=== PATIENT | female | born 2000 | race Caucasian/White ===

== ENCOUNTER 2025-01-01 16:51 | Emergency (ER) | payer OTHER, SELFPAY ==
[2025-01-01] VITALS (12 sets, daily range): BP systolic 100–119; BP diastolic 56–72; PULSE 63–103; RESP 11–22; TEMP 36.7–36.8; O2SAT 97–100
--- NOTE | ~2025-01-01 | CT_ITS ---
CTA CHEST CT ABDOMEN PELVIS CLINICAL HISTORY: shortness of breath, on BCP, chest pressure . COMPARISON: None TECHNIQUE: Helical CT performed from thoracic inlet to symphysis pubis IV contrast information not listed in PACS Coronal, sagittal reformats. Multiplanar MIPS CT images acquired with automatic exposure control for dose reduction DLP: 600 mGy-cm FINDINGS: CHEST- Thoracic Aorta: No dissection. No aneurysm. Pulmonary arteries: Normal caliber. No PE. Lungs/Pleura: Clear. Heart: Unremarkable. Tracheobronchial tree: Patent. Nodes: No enlarged nodes. Bones: No acute bony abnormality. Soft tissues: Unremarkable. ABDOMEN/PELVIS- Liver: Hepatomegaly, with steatosis. Gallbladder: Unremarkable. Spleen: Mildly enlarged. Pancreas: Unremarkable. Adrenal glands: Unremarkable. Kidneys: Right kidney- No hydronephrosis. No renal stones. Small cyst. Left kidney- No hydronephrosis. No renal stones. Circumaortic renal vein. Distal esophagus/stomach: Unremarkable. Small bowel loops: Normal caliber and wall thickness. Colon: Normal caliber and wall thickness. Normal RLQ appendix. Nodes: No enlarged nodes. Peritoneum: No ascites. No free air. Urinary bladder: Unremarkable. Uterus: Unremarkable. Adnexa: No masses. Bones: No acute bony abnormality. Soft tissues: Unremarkable. Abdominal aorta: Unremarkable. IVC: Unremarkable. Main portal vein, SMV: Patent. IMPRESSION: CHEST- 1. No acute cardiopulmonary findings. ABDOMEN/PELVIS- 1. No acute abdominopelvic findings. Reviewed, dictated and finalized at location R.
--- NOTE | ~2025-01-01 | CT_ITS ---
EXAMINATION: CT brain wo con COMPARISON: None HISTORY: AMS TECHNIQUE: Axial images were obtained through the brain without IV contrast. CT scan performed using dose optimization techniques including the following automated exposure control; adjustment of mA and/or kV; use of iterative reconstruction technique. Automatic exposure control was used to reduce radiation dose. Permanent radiation dose record is archived to PACS. FINDINGS: No acute infarct or parenchymal hemorrhage. No abnormal mass or mass effect. No midline shift. No extra-axial fluid collections. No hydrocephalus. . Mastoid air cells unremarkable. Sinuses and orbits unremarkable. No acute fracture. No significant facial or scalp soft tissue swelling evident. No radiopaque foreign body is seen. Impression: 1.No acute intracranial abnormality. Reviewed, dictated and finalized at location P. Impression: 1.No acute intracranial abnormality.
[2025-01-01 17:25] LABS: Hematocrit 39.7 % (37.0-47.0); Hemoglobin 13.9 g/dL (12.0-15.0); Immature Granulocyte Percent A 0.3 % (0-0.5); Lymphocytes Absolute Auto 3.96 K/mm3 (0.9-3.2); Mean Corpuscular HGB Conc 35.0 g/dl (32-36); Mean Corpuscular Hemoglobin 29.8 pg (26-34); Mean Corpuscular Volume 85.2 fl (80-100); Nucleated Red Blood Cells Absolute Auto 0.000 K/mm3 (0.0-0.012); Nucleated Red Blood Cells Perc 0.0 % (0.0-0.2); Platelet Count Result 233 k/mm3 (150-375); Red Blood Count 4.66 M/mm3 (4.2-5.4); White Blood Count 7.8 K/mm3 (4.5-10.0)
--- NOTE | 2025-01-01 17:25 | ECG_ITS ---
Test Date: 2025-01-01 17:26:49 Measurements Intervals [place] Rate: 75 P: 49 KS: 140 QRS: 15 QRSD: 89 T: 47 QT: 395 QTc: 442 Interpretive Statements SINUS RHYTHM NONSPECIFIC T-WAVE ABNORMALITY- ANTERIOR LEADS BORDERLINE ECG No previous ECG available for comparison Electronically Signed On 01-01-2025 18:34:49 CDT by Glenn Wells D.O.
[2025-01-01 17:36] LABS: Alanine Aminotransferase 18 U/L (6-35); Albumin Level 4.8 g/dL (3.5-5.1); Alkaline Phosphatase 66 U/L (38-126); Anion Gap 11 mmol/L (4-12); Aspartate Amino Transferase 28 U/L (14-36); Bilirubin,Total 0.4 mg/dL (0.2-1.3); Blood Urea Nitrogen 11 mg/dL (7-17); Calcium 9.7 mg/dL (8.4-10.2); Carbon Dioxide 24 mmol/L (22-30); Chloride 105 mmol/L (98-107); Estimated CRCL calculation 87 ml/min; Estimated Glomerular Filt Rate > 60; Glucose 90 mg/dL (65-110); Potassium 3.7 mmol/L (3.4-5.0); Sodium 140 mmol/L (137-145); Total Protein 8.5 g/dL (6.3-8.2)
[2025-01-01 17:37] LABS: Acetaminophen < 10 ug/mL (10-30); INR 1.0; Partial Thromboplastin Time 27.8 Seconds (22.3-36.8); Prothrombin Time 13.5 Seconds (11.1-14.7); Salicylate < 1.0 mg/dL (2-20)
[2025-01-01 18:25] LABS: Thyroid Stimulating Hormone Reflex 3.660 uIU/mL (0.465-4.68)
--- NOTE | 2025-01-01 18:26 | ED.AMS ---
HPI - Altered Mental Status General Chief Complaint: Altered Mental Status Stated Complaint: passing out, in and out of conciousness for hour Time Seen by Provider: 01/01/25 17:08 History of Present Illness HPI narrative: Patient is a 24-year-old female who presents to the ER after experiencing an episode of brain fog, tongue heaviness, muscle weakness, and semi-consciousness. She reports her symptoms started this afternoon and she has never experienced this before. Patient endorses a history of hypothyroidism, PCOS, and endometriosis. She reports she currently takes levothyroxine and a medication to stop her periods due to endometriosis. Patient also endorses some chest pressure and shortness of breath. She denies any recent fevers, acute back pain, or hematuria. Related Data Allergies Allergy/AdvReac Type Severity Reaction Status Date / Time pseudoephedrine (From Allergy Mild Vomiting Verified 01/01/25 17:27 Sudafed) Review of Systems Review of Systems: All systems reviewed & are unremarkable except as noted in HPI and below Exam Narrative: GENERAL: Slightly ill appearing, well-nourished, non-toxic, in no acute distress. HEAD: Normocephalic, atraumatic. NECK: Supple. No adenopathy, no masses. RESPIRATORY: Airway patent, respirations nonlabored. Clear to auscultation bilaterally, no rales, rhonchi, wheezing. CARDIOVASCULAR: Regular rate and rhythm without murmurs, rubs, or gallops. Peripheral pulses 2+ and equal bilaterally. ABDOMINAL: Soft, nontender, nondistended, no hepatosplenomegaly. Normoactive BS. MUSCULOSKELETAL: Moves all extremities. Strength/ROM intact without gross deformities. SKIN: Warm, dry, mildly pallor. No rashes. NEURO: A&O X3. Speech clear. Cranial nerves II-XII intact. No ataxic movements. PSYCHIATRIC: Appropriate mood and affect. Normal interaction. Course Vital Signs Vital signs: Vital Signs Temperature 36.7 C 01/01/25 17: Pulse Rate 78 01/01/25 17: Respiratory Rate 12 01/01/25 17:28 Blood Pressure 114/72 01/01/25 17:28 Pulse Oximetry 100 01/01/25 17:28 Oxygen Delivery Room Air 01/01/25 17:28 Temperature 36.7 C 01/01/25 17:28 Pulse Rate 103 H 01/01/25 18:41 Respiratory Rate 22 H 01/01/25 18:41 Blood Pressure 107/62 01/01/25 18:41 Pulse Oximetry 98 01/01/25 18:41 Oxygen Delivery Room Air 01/01/25 17:34 MDM - Altered Mental Status MDM Narrative Medical decision making narrative: Patient is a 24-year-old female who presents to the ER after experiencing an episode of brain fog, tongue heaviness, muscle weakness, and semi-consciousness. She reports her symptoms started this afternoon and she has never experienced this before. Patient endorses a history of hypothyroidism, PCOS, and endometriosis. She reports she currently takes levothyroxine and a medication to stop her periods due to endometriosis. Patient also endorses some chest pressure and shortness of breath. She denies any recent fevers, acute back pain, or hematuria. Labs Ordered: CBC, CMP, PTT, INR, TSH, ethanol, Tylenol level, salicylate level, UA, drug screen Imaging Ordered: CTA chest PE abdomen pelvis Medications Ordered: 1 L normal saline IV bolus Results: Patient's blood work results were all within normal limits. Her CT scan indicates no acute abnormalities. Diagnosis: dizziness, altered mental status Consults: OBGYN (outpatient, already established), Endocrinology (outpatient, already established) Patient Education/Shared MDM: Results of lab work and imaging shared with patient and her family. She was ambulated around the ER and endorsed slight dizziness but denies any altered mental status. Her orthostatic vital signs were negative for any acute abnormalities. Patient strongly advised to maintain hydration status upon discharge and follow-up with her PCP, dance entertainer, and OBGYN as soon as possible. She will not be discharged home with any new prescriptions. Strict return precautions provided. Patient verbalized understanding and is in agreement with plan. Vital signs stable at time of discharge. All questions answered. Differential Diagnosis Differential diagnosis: Likely altered mental status, hypoglycemia, hyponatremia, subarachnoid hemorrhage and sepsis Lab Data Attestation: I reviewed the patient's lab results. 01/01/25 17:20 01/01/25 17:20 Labs: Lab Results 01/01/25 01/01/25 01/01/25 Range/Units 16:57 17:20 18:13 WBC 7.8 (4.5-10.0) K/mm3 RBC 4.66 (4.2-5.4) M/mm3 Hgb 13.9 (12.0-15.0) g/dL Hct 39.7 (37.0-47.0) % MCV 85.2 (80-100) fl MCH 29.8 (26-34) pg MCHC 35.0 (32-36) g/dl RDW 12.2 (11.5-14.5) % Plt Count 233 (150-375) k/mm3 MPV 9.6 (7.4-10.4) fl Immature Gran % (Auto) 0.3 (0-0.5) % Neut % (Auto) 41.8 L (45.5-73.1) % Lymph % (Auto) 51.0 H (18.3-44.2) % Armstrong % (Auto) 5.3 (2.6-8.5) % Eos % (Auto) 1.3 (0-4.4) % Baso % (Auto) 0.3 (0.2-1.2) % Lymph # (Auto) 3.96 H (0.9-3.2) K/mm3 Armstrong # (Auto) 0.4 (0.1-0.6) K/mm3 Eos # (Auto) 0.1 (0-0.3) K/mm3 Baso # (Auto) 0.0 (0.0-0.1) K/mm3 Abs Immat Gran (auto) 0.02 (0.00-0.031) K/mm3 Absolute Neuts (auto) 3.3 (1.3-6.7) K/mm3 Absolute Nucleated RBC 0.000 (0.0-0.012) K/mm3 Nucleated RBC % 0.0 (0.0-0.2) % PT 13.5 (11.1-14.7) Seconds INR 1.0 APTT 27.8 (22.3-36.8) Seconds Sodium 140 (137-145) mmol/L Potassium 3.7 (3.4-5.0) mmol/L Chloride 105 (98-107) mmol/L Carbon Dioxide 24 (22-30) mmol/L Anion Gap 11 (4-12) mmol/L BUN 11 (7-17) mg/dL Creatinine 0.82 (0.7-1.0) mg/dL Estim Creat Clear Calc 87 ml/min Estimated GFR > 60 (59 - ) Glucose 90 (65-110) mg/dL POC Capillary Glucose 73 (65-105) mg/dl Calcium 9.7 (8.4-10.2) mg/dL Total Bilirubin 0.4 (0.2-1.3) mg/dL AST 28 (14-36) U/L ALT 18 (6-35) U/L Alkaline Phosphatase 66 (38-126) U/L Total Protein 8.5 H (6.3-8.2) g/dL Albumin 4.8 (3.5-5.1) g/dL TSH (Reflex) 3.660 (0.465-4.68) uIU/mL Urine Color Yellow (Yellow) Urine Appearance Clear (Clear) Urine pH 7.5 (5.0-9.0) Ur Specific [place] 1.004 (1.001-1.035) Urine Protein Negative (Negative) mg/dL Urine Glucose (UA) Negative (Negative) mg/dL Urine Ketones Negative (Negative) mg/dL Ur Blood (Man) Negative (Negative) Urine Nitrate Negative (Negative) Urine Bilirubin Negative (Negative) Urine Urobilinogen 0.2 (<2.0) mg/dL Leukocyte Esterase Rfl Negative (Negative) JANUARY/UL POC Urine HCG, Qual (Negative) Salicylates < 1.0 L (2-20) mg/dL Urine Opiates Screen Negative (Negative) Urine Methadone Screen Negative (Negative) Acetaminophen < 10 L (10-30) ug/mL Ur Barbiturates Screen Negative (Negative) Ur Phencyclidine Scrn Negative (Negative) Ur Amphetamine Screen Negative (Negative) U Benzodiazepines Scrn Negative (Negative) Urine Cocaine Screen Negative (Negative) U Cannabinoids Screen Negative (Negative) Ethyl Alcohol < 10 (<10) mg/dL Influenza A (RT-PCR) (Negative) Influenza B (RT-PCR) (Negative) RSV (RT-PCR) (Negative) SARS-CoV-2 RNA (RT-PCR) (Negative) 01/01/25 01/01/25 Range/Units 18:30 18:37 WBC (4.5-10.0) K/mm3 RBC (4.2-5.4) M/mm3 Hgb (12.0-15.0) g/dL Hct (37.0-47.0) % MCV (80-100) fl MCH (26-34) pg MCHC (32-36) g/dl RDW (11.5-14.5) % Plt Count (150-375) k/mm3 MPV (7.4-10.4) fl Immature Gran % (Auto) (0-0.5) % Neut % (Auto) (45.5-73.1) % Lymph % (Auto) (18.3-44.2) % Armstrong % (Auto) (2.6-8.5) % Eos % (Auto) (0-4.4) % Baso % (Auto) (0.2-1.2) % Lymph # (Auto) (0.9-3.2) K/mm3 [place] # (Auto) (0.1-0.6) K/mm3 Eos # (Auto) (0-0.3) K/mm3 Baso # (Auto) (0.0-0.1) K/mm3 Abs Immat Gran (auto) (0.00-0.031) K/mm3 Absolute Neuts (auto) (1.3-6.7) K/mm3 Absolute Nucleated RBC (0.0-0.012) K/mm3 Nucleated RBC % (0.0-0.2) % PT (11.1-14.7) Seconds INR APTT (22.3-36.8) Seconds Sodium (137-145) mmol/L Potassium (3.4-5.0) mmol/L Chloride (98-107) mmol/L Carbon Dioxide (22-30) mmol/L Anion Gap (4-12) mmol/L BUN (7-17) mg/dL Creatinine (0.7-1.0) mg/dL Estim Creat Clear Calc ml/min Estimated GFR (59 - ) Glucose (65-110) mg/dL POC Capillary Glucose (65-105) mg/dl Calcium (8.4-10.2) mg/dL Total Bilirubin (0.2-1.3) mg/dL AST (14-36) U/L ALT (6-35) U/L Alkaline Phosphatase (38-126) U/L Total Protein (6.3-8.2) g/dL Albumin (3.5-5.1) g/dL TSH (Reflex) (0.465-4.68) uIU/mL Urine Color (Yellow) Urine Appearance (Clear) Urine pH (5.0-9.0) Ur Specific [place] (1.001-1.035) Urine Protein (Negative) mg/dL Urine Glucose (UA) (Negative) mg/dL Urine Ketones (Negative) mg/dL Ur Blood (Man) (Negative) Urine Nitrate (Negative) Urine Bilirubin (Negative) Urine Urobilinogen (<2.0) mg/dL Leukocyte Esterase Rfl (Negative) JANUARY/UL POC Urine HCG, Qual Negative (Negative) Salicylates (2-20) mg/dL Urine Opiates Screen (Negative) Urine Methadone Screen (Negative) Acetaminophen (10-30) ug/mL Ur Barbiturates Screen (Negative) Ur Phencyclidine Scrn (Negative) Ur Amphetamine Screen (Negative) U Benzodiazepines Scrn (Negative) Urine Cocaine Screen (Negative) U Cannabinoids Screen (Negative) Ethyl Alcohol (<10) mg/dL Influenza A (RT-PCR) Negative (Negative) Influenza B (RT-PCR) Negative (Negative) RSV (RT-PCR) Negative (Negative) SARS-CoV-2 RNA (RT-PCR) Negative (Negative) Imaging Data Attestation: I personally reviewed and interpreted this imaging study as follows: Radiologist's impression: Impressions Head CT 01/01/25 17:28 Impression: 1.No acute intracranial abnormality. Chest/Abdomen/Pelvis CTA 01/01/25 19:43 IMPRESSION: CHEST- 1. No acute cardiopulmonary findings. ABDOMEN/PELVIS- 1. No acute abdominopelvic findings. Discharge Plan Discharge Clinical Impression: Altered mental status, Dizziness of unknown cause Patient Disposition: Home Condition: Stable Instructions: Antibiotic Form Additional Instructions: Please return to the ER with any worsening symptoms. Follow-up with primary care provider, Sound Assistant, an OBGYN as soon as possible. Take all medications as prescribed, including regularly scheduled medications. Please remember to drink lots of water. Patient Language: Y[place] Follow-up/Referrals: PHYSICIAN NOT ON STAFF,NONSTAFF [Primary Care Provider] Time of Disposition: 20:47
[2025-01-01 18:28] LABS: Add Urine Microscopic? NO; Appearance Urine Clear (Clear); Glucose Urine UA Negative (Negative); Leukocyte Esterase Ur Negative LEU/UL (Negative); Nitrate Urine Negative (Negative); Specific Grav Ur 1.004 (1.001-1.035)
[2025-01-01 18:39] LABS: BEDSIDEPREGUCG Negative (Negative)
[2025-01-01 18:43] LABS: Cannabinoid Screen Urine Negative (Negative)
[2025-01-01] MEDS: SODIUM CHLORIDE 0.9% IV 1,000 ML 999 ML IV CONT (18:49)
[2025-01-01 19:21] LABS: Influenza A QL RT-PCR Negative (Negative); Influenza B QL RT-PCR Negative (Negative); RSV RNA, RT-PCR Negative (Negative); SARS-CoV-2 RNA PCR Negative (Negative)
--- OUTSIDE RECORDS SUMMARY | 2025-01-01 19:21 | XMS_ITS | Data Portability ---
Author Organization [place] - [facility], EFF_Historical Results Address [address] [place] [address] Care Team Providers Care Objective C Developer Name Role Phone JASIEL ROMAN Primary Care Provider [phone] Assessment Encounter Date Assessment Date Assessment LastModified by Organization Details LastModified Time 07/18/2024 07/18/2024 Extensive history reviewed with pt. Reviewed various options to help suppress cycles. OCPs, IUD, Orilissa, Myfembree, and Lupron. Failed numerous OCPs recently. Not intersted in IUD at this time. Normal SIS. previously had thin endometrium and bleeding improved with the addition of estradiol to pill. Pt agreeable to try Myfembree. Will have her stop her OCPs and start Myfembree and use back up the 1st week. Myfembree not technically approved as contraception so would use condoms for back up. F/u in 6-8wk on medication. [email or web address] Not available 07/18/2024 13:06:00 08/22/2024 08/22/2024 -Pap was done. -Discussed breast self-awareness. Can do Baseline mammogram 35-40 and if over 40 annually. -Contraceptive options discussed. Patient plans condom use -Encouraged condoms for the prevention of STDs -Reviewed that colon cancer screening is recommended to begin at age 45. -Sunscreen and seat belt use encouraged. -Age appropriate vaccines discussed with patient. -Follow up as needed, or for yearly gynecologic exam [email or web address] Not available 08/22/2024 12:19:54 09/20/2024 09/20/2024 Extensive history reviewed with pt. Reviewed various options to help suppress cycles. OCPs, IUD, Orilissa, Myfembree, and Lupron. Failed numerous OCPs recently. Not interested in IUD at this time. Normal SIS. previously had thin endometrium and bleeding improved with the addition of estradiol to pill. Pt is doing well with the Myfembree. Myfembree not technically approved as contraception so would use condoms for back up. F/u in August next year for AWV. [email or web address] Not available 09/20/2024 11:22:58 Plan of Treatment Reminders Order Date Submit Date Provider Last Modified By Organization Details Last Modified Time Details Appointments Annual Exam 2025 11:30A M CARIDAD BUSH PA-C Not available Not available Not available Lab pap, LB + reflex HPV mRNA E6/E7 [address] [facility], [id number] [place] [address], [address], 08/26/2024 10:22:57 Referral None recorded. Procedures None recorded. Surgeries None recorded. Imaging None recorded. Medication Orders Myfembree 40 mg-1 mg-0.5 mg tablet 2024 025 [facility], [address] [place] [address], [address], 12/28/2024 13:00:06 Myfembree 40 mg-1 mg-0.5 mg tablet 2024 025 [facility], [address] [place] [address], [address], 09/14/2024 10:59:34 Nortrel 1/35 (28) 1 mg-35 mcg tablet 2024 025 [facility], [address] [place] [address], [address], 07/04/2024 14:55:21 Patient TargetsNo targets recorded. Patient Instructions Encounter Date Encounter Id Patient Instructions Last Modified By Organization Details Last Modified Time 03/22/2024 [id number] discussed that t he SIS findings reveal a thin endometrial stripe and the fact that her bleeding improved with the estradiol suggests that she should try higher dose OC. Had tried not to do that due to the endometriosis but overall - she seems to do better with the estrogen. Nortrel sent to pharmacy and she will begin those. Keep next appointment [email or web address] Not available 03/23/2024 17:58:58 04/06/2024 [id number] She is going to continue the Metformin. Discussed referral to GI for the continued abd discomfort. She is agreeable. [email or web address] Not available 04/06/2024 15:46:03 08/22/2024 [id number] Happy that she i s doing will on Myfembree. Hopefully her pain will continue to improve. [email or web address] Not available 08/22/2024 12:20:28 Reason for Referral None Reported. Results Created Date Observation Date Name Description Value Unit Range Abnormal Flag Note LastModifiedBy Organization Detail LastModifiedTime 08/23/19 25 08/26/2024 THINP REP TIS PAP W/REF L HPV MRNA E6/E7 clinical information: normal None given Not Available [address], [address], 08/26/2024 10:22:57 08/23/19 25 08/26/2024 THINP REP TIS PAP W/REF L HPV MRNA E6/E7 LMP: normal NONE GIVEN Not Available [address], [address], 08/26/2024 10:22:57 08/23/19 25 08/26/2024 THINP REP TIS PAP W/REF L HPV MRNA E6/E7 prev. Pap: normal NONE GIVEN Not Available [address], [address], 08/26/2024 10:22:57 08/23/19 25 08/26/2024 THINP REP TIS PAP W/REF L HPV MRNA E6/E7 prev. BX: normal NONE GIVEN Not Available [address], [address], 08/26/2024 10:22:57 08/23/19 25 08/26/2024 THINP REP TIS PAP W/REF L HPV MRNA E6/E7 source: normal Cervi x, Endoc ervix Not Available [address] [place], [address], 08/26/2024 10:22:57 08/23/19 25 08/26/2024 THINP REP TIS PAP W/REF L HPV MRNA E6/E7 statement of adequacy: normal Satis facto ry for evalu ation . Endoc ervic al/tr ansfo rmati on zone compo nent prese nt. Age and/o r menst rual statu s not provi ded Not Available [address] [place], [address], 08/26/2024 10:22:57 08/23/19 25 08/26/2024 THINP REP TIS PAP W/REF L HPV MRNA E6/E7 interpretati on/result: normal Cytol ogy Resul ts: Negat timothy for intra epith elial lesio n or malrosalina motley . Not Available [address] [place], [address], 08/26/2024 10:22:57 08/23/19 25 08/26/2024 THINP REP TIS PAP W/REF L HPV MRNA E6/E7 comment: normal This Pap test has been evalu ated with compu ter jeet [employer] o[employer] . Not Available [address] [place], [address], 08/26/2024 10:22:57 08/23/19 25 08/26/2024 THINP REP TIS PAP W/REF L HPV MRNA E6/E7 cytotechnolo gist: normal LM, CT( CP) CT scree betty locat ion: [address] [place] [address] Not Available [address] [place], [address], 08/26/2024 10:22:57 08/23/19 25 08/26/2024 THINP REP TIS PAP W/REF L HPV MRNA E6/E7 comment EXPLA NATOR Y NOTE: The Pap is a scree betty test for cervi shannon cance r. It is not a diagn ostic test and is subje ct to false negat timothy and false posit timothy resul ts. It is most relia ble when a satis facto ry sampl e, regul ion obtai letha, is submi tted with relev ant clini shannon findi ngs and histo ry, and when the Pap resul t is evalu ated along with histo mandy and curre nt clini shannon infor matio n. Not Available [facility] [address], [place], [address], 08/26/2024 10:22:57 03/22/1903/22/2024 US, salin e infus ed uteru s No observ ation record ed. [email or web address] [address], [place], [address], 03/23/2024 18:02:51 05/01/19 25 08/17/2022 imagi ng/di agnos tic resul t No observ ation record ed. Not Available 05/01/2024 06:57:25 05/01/19 25 11/17/2022 imagi ng/di agnos tic resul t No observ ation record ed. Not Available 05/01/2024 06:57:26 Result Notes None recorded. Problems Name Problem SNOMED Code Status Onset Date Resolution Date Notes Provider Name and Address Organization Details Recorded Time Dysmenorrh ea 315436598 Active 2023 Shelia yarbrough [facility] 4 10:30:24 Endometrio sis of pelvis 00564562 Active 2023 CARIDAD BUSH PA-C [address] [place], [address] , [place] [facility] 4 16:16:06 Abnormal uterine bleeding 3517086271584 0 Active 2023 Shell yarbrough [facility] 4 13:20:01 Acquired hypothyroi dism 200548512 Active 2024 Shelia Micheal [facility] 5 15:25:56 Problem Notes None recorded. Procedures Surgical History Date Name Laterality Status Provider Name and Address Organization Details Recorded Time 08/23/19 25 Date of Last Pap Smear completed Hannah Vann [facility] 08/28/2024 11:05:15 03/22/19 25 EFF Saline Infusion Sonogram (SIS) completed LUCINDA HINOJOSA MD [address] [place] [address], [phone] 03/23/2024 17:56:55 10/17/19 24 Laparoscopy excise lesions completed MARIANN MORENO [facility] 10/21/2023 09:02:44 10/17/19 24 Laparoscopy completed Marifer Maher [facility] 07/18/2024 11:06:27 03/11/19 22 Breast reduction completed Rosemary Cameron [facility] 07/21/2023 16:42:38 Imaging Results None recorded. Procedure Notes None recorded. Medical Equipment None Reported. Allergies Allergen ID Allergen Name Allergen Category Reaction Reaction Severity Criticality Documentation Date Start Date Code Code System Note Provider Name and Address Organization Details Recorded Time Miralax medicatio n Not available Not available Not available 12/29/2023 03050 5 RxNorm Tayleran Vides [facility] 4 15:55:40 7196 Sudafed medicatio n vomiting Not available Not available 07/21/202312576 2 RxNorm Jocelynne Will [facility] 4 16:36:54 Medications Name Sig Start Date Stop Date Status Note LastModified by Organization Details LastModified Time Prescript ion - Clarifica tion 09/20 completed Imported - PA request Not Available Not Available Not Available amoxicill in 500 mg capsule 07/26 completed Not Available Not Available Not Available prednison e 10 mg tablet TAKE THREE TABLETS BY MOUTH FOR 3 DAYS, THEN TAKE TWO TABLETS BY MOUTH FOR 3 DAYS, THEN TAKE ONE TABLET BY MOUTH FOR 4 DAYS 07/12 completed Not Available Not Available Not Available azithromy jeramie 250 mg tablet TAKE 2 TABLETS BY MOUTH ON DAY 1, THEN TAKE 1 TABLET DAILY ON DAYS 2-5 03/19 completed Not Available Not Available Not Available hydrocodo ne 5 mg-acetam inophen 325 mg tablet Take 1 tablet by mouth every 4 (four) hours as needed for Pain. Indicati ons Acute Pain < 7 Day Supply 11/08 completed Not Available Not Available Not Available doxycycli ne monohydra te 100 mg tablet 01/23 completed Not Available Not Available Not Available triamcino lone acetonide 0.1 % topical cream Apply topicall y TWO times daily. 07/12 completed Not Available Not Available Not Available levothyro xine 25 mcg tablet Take 1 tablet (25 mcg total) by mouth every morning. active Not Available Not Available No t Available Nortrel 1/35 (28) 1 mg-35 mcg tablet Take 1 tablet every day by oral route. SKIP PLACEBOS . 08/21 completed Not Available Not Available Not Available estradiol 0.5 mg tablet TAKE ONE TABLET BY MOUTH EVERY DAY active Not Available Not Available No t Available ibuprofen 600 mg tablet Take 1 tablet (600 mg total) by mouth every 6 (six) hours as needed for Pain. 04/06 completed Not Available Not Available Not Available albuterol sulfate HFA 90 mcg/actua tion aerosol inhaler INHALE 2 PUFFS BY MOUTH EVERY 4 TO 6 HOURS NEEDED 07/26 completed Not Available Not Available Not Available metformin ER 500 mg tablet,ex tended release 24 hr TAKE ONE TABLET BY MOUTH ONCE DAILY WITH EVENING MEAL. 2024 active Not Available Not Available Not Avai lable dicyclomi ne 10 mg capsule TAKE ONE CAPSULE BY MOUTH FOUR TIMES DAILY FOR 21 DAYS NEEDED FOR CRAMPING active Not Available Not Available No t Available Nortrel 1/35 (28) take 1 tablet daily 03/23 completed Not Available Not Available Not Available Symbicort 160 mcg-4.5 mcg/actua tion HFA aerosol inhaler INHALE 2 PUFFS BY MOUTH TWICE DAILY. RINSE MOUTH WITH WATER AFTER USE 07/26 completed Not Available Not Available Not Available Lo Loestrin Fe 1 mg-10 mcg (24)/10 mcg (2) tablet 04/06 completed Not Available Not Available Not Available Piper (28) 3 mg-0.02 mg tablet TAKE ONE TABLET BY MOUTH DAILY 03/23 completed Not Available Not Available Not Available Orilissa 150 mg tablet TAKE ONE TABLET BY MOUTH EVERY DAY 12/26 completed patient feels like it may be causing night terrors. Not Available Not Available Not Available Myfembree 40 mg-1 mg-0.5 mg tablet Take 1 tablet every day by oral route. 2024 active Not Available Not Available Not Avai lable Vitals Date Recorded Body height Body mass index (BMI) Body weight Systolic And Diastolic Provider Name and Address Organization Details Last Updated DateTime 03/22/2024 156.21 cm 31.6 kg/m2 03485.7 g 122/60 mm[Hg] Shelia Ashby [facility] 03/22/2024 16:00:27 Date Recorded Body height Body mass index (BMI) Body weight Systolic And Diastolic Provider Name and Address Organization Details Last Updated DateTime 04/06/2024 156.21 cm 32.2 kg/m2 85084.48 g 118/70 mm[Hg] Shelia Burton [facility] 04/06/2024 15:21:14 Date Recorded Body height Body mass index (BMI) Body weight Systolic And Diastolic Provider Name and Address Organization Details Last Updated DateTime 07/18/2024 156.21 cm 32.3 kg/m2 86934.07 g 106/76 mm[Hg] [facility] 07/18/2024 11:11:45 Date Recorded Body height Body mass index (BMI) Body weight Systolic And Diastolic Provider Name and Address Organization Details Last Updated DateTime 08/22/2024 156.21 cm 31.8 kg/m2 69797.3 g 120/78 mm[Hg] [facility] 08/22/2024 11:56:02 Date Recorded Body height Body mass index (BMI) Body weight Systolic And Diastolic Provider Name and Address Organization Details Last Updated DateTime 09/20/2024 156.21 cm 31.2 kg/m2 47228.52 g 110/68 mm[Hg] Melody Lora [facility] 09/20/2024 11:14:23 Social History Question Answer Notes LastModified by Organizat ion Details LastModified Time Tobacco Smoking Status Never Smoker Rosemary yarbrough [facility] 07/21/2023 16:41:58 What Is Your Level Of Caffeine Consumption? None [email or web address] Information not available 07/18/2024 What Type Of Diet Are You Following? REGULAR Information not available 07/28/2023 Have There Been Any Changes To Your Family Or Social Situation? No Information not available 07/28/2023 What Is The Highest Level Of School You Have Completed Or The Highest Degree You Have Received? High School Graduate Information not available 07/21/2023 How Do You Identify Yourself? Heterosexual Information not available 07/21/2023 What Is Your Ethnicity? Information not available 07/28/2023 What Was The Date Of Your Most Recent Tobacco Screening? 08/22/2024 [email or web address] Information not available 08/22/2024 What Is Your Relationship Status? Single Information not available 07/21/2023 Are There Any Smokers In Your House? No Information not available 07/28/2023 How Much Tobacco Do You Smoke? No Information not available 07/28/2023 Sex: Female Functional Status Question Answer Note LastModified by Organizat ion Details LastModified Time Do you use any illicit or recreational drugs? No Information not available 07/21/2023 Do you or have you ever used any other forms of tobacco or nicotine? No Information not available 07/28/2023 What is your level of alcohol consumption? None [email or web address] Information not available 07/18/2024 Are you currently employed? No Information not available 07/21/2023 What is your exercise level? Occasional Information not available 07/21/2023 Mental Status None recorded. Family History Relationship Description Onset Age of this Age Resolved Age Notes LastModified by Organization Details LastModified Time Paternal Grandfather Malignant neoplastic disease pt. added direct ly (07/26) API-13 Not available 07/27/2023 12:47:15 Unspecified Relation Malignant neoplasm of rectum [email or web address] Not available 2024 11:07:42 Unspecified Relation Malignant neoplasm of rectum [email or web address] Not available 2024 11:07:42 Medical History Condition Response Allergies (Food, seasonal, environmental ) Y Other N Thyroid Disease Y Cancer Endometrial N Blood Transfusion N Cancer Breast N Lung Disease N Depression N GI Problems N Hematologic (Blood) Disorder N Eating Disorder N Gestational Diabetes N Anemia N Psychiatric Disorder N Thrombophilia N Cancer Colon N Diabetes N Anxiety Disorder N Cancer Other N Arthritis N Cancer Uterine N Acid Reflux (GERD) N Stroke N Asthma N Polycystic Ovary Syndrome (PCOS) Y Endometriosis Y High Cholesterol N Neurologic Disorder N Defects N Liver Disease N Heart Disease N Cancer Ovarian N Fibromyalgia N Deep Vein Thrombosis (DVT) or Pulmonary Embolism (PE) N Hypertension N Osteoporosis N Kidney Disease N Autoimmune Disease N Gynecological History Statement/Question Response Flow Moderate Date of Last Mammogram Date of LMP 07/25/2024 Post Menopausal Bleeding N STIs/STDs N HPV Vaccine N Duration of Flow (days) 4 Age at Menarche 13 Current Control Method BCPs Date of Last DEXA Date of Last Colonoscopy Frequency of Cycle (Q days) 28 Sexually Active? N Menses Monthly N Date of Last Pap Smear 08/22/2024 Hormone Replacement Therapy N Obstetrics History GPAL:G 0 P 0 0 0 0 Past Encounters Encounter ID Performer Location Encounter Start Date Encounter Closed Date Diagnosis/Indication Diagnosis SNOMED-CT Code Diagnosis ICD10 Code Diagnosis IMO Codes Diagnosis Note [id number] LUCINDA HINOJOSA MD [facility] [address] [place] [address] 07/28/2023 10:22:13 07/28/2023 11:37:41 Endometriosis (clinical) 582686745 N80.9 [facility] ion care management 655197160 Z30.9 [id number] SHARMIN MORSE MD [facility] [address] [place] [address] 10/11/2023 16:06:08 10/11/2023 16:49:27 Dysmenorrhea 779993927 N94.6 Endometrio sis (clinical) 554749142 N80.9 Chronic pe lvic pain of female 966536809 R10.2 Pre-surger y evaluation 547401296 Z01.818 [id number] LUCINDA HINOJOSA MD [facility] [address] [place] [address] 10/26/2023 15:12:28 10/26/2023 16:16:22 Surgical incision wound of skin 1887377906 00 R23.8 Normal healing incision.K eep umbilicus dry to prevent drainage.C an use hair worker to dry after shower.Antonio p area clean and dry and use soap and water in the shower.Ret urn for f/u with [facility] next week. Endometrio sis of pelvis 49532971 N80.9 confirmed with l-scope on 10/18/2023 [id number] LUCINDA HINOJOSA MD [facility] [address] [place] [address] 11/11/2023 16:46:15 11/11/2023 18:02:21 Endometriosis of pelvis 39192377 N80.9 [facility] ion care management 788011949 Z30.9 [id number] SHARMIN MORSE MD [facility] [address] [place] [address] 12/29/2023 15:50:34 12/29/2023 16:55:35 Venereal disease screening 452158067 Z11.3 Endometritis 62152635 N7 1.9 Suspect she has inflammati on in the lining. Will do doxy.Okay for exercise.L et me know if problems persist. Menstrual spotting 57194 05 N92.5 Could [id number] CARIDAD BUSH PA-C [facility] [address] [place] [address] 01/26/2024 15:44:56 01/26/2024 18:07:53 Abnormal uterine bleeding 2061373273 9100 N93.9 Cont to have irreg bleeding. Will do cont OCPs and try LoLo. If irreg bleeding cont will have her do SIS with [facility]. If SIS is abn would likely need H-scope/D& C. If going that route could consider placingLil tr at the same time.See [facility] in 2 months. Polycystic ovary syndrome 780301528 E28.2 Refill on Metformin. Endometrio sis of pelvis 71062357 N80.9 confirmed with l-scope on 10/18/2023 [id number] CARIDAD BUSH PA-C [facility] [address] [place] [address] 01/25/2024 12:29:56 01/25/2024 15:12:37 Irregular periods 63408240 N92.6 [id number] LUCINDA HINOJOSA MD [facility] [address] [place] [address] 03/22/2024 15:15:52 03/22/2024 16:54:03 Abnormal uterine bleeding 2210258061 9100 N93.9 [id number] LUCINDA HINOJOSA MD [facility] [address] [place] [address] 04/06/2024 14:50:43 04/06/2024 15:51:41 Endometriosis of pelvis 85085796 N80.9 Dysmenorrhea 265977864 N 94.6 Contracept ion care management 263172412 Z30.9 [id number] LUCINDA HINOJOSA MD [facility] [address] [place] [address] 07/18/2024 10:59:02 07/18/2024 11:41:58 Endometriosis (clinical) 190816291 N80.9 [id number] confirmed with l-scope on 10/18/2023s amples given x 4 wk plus handout and savings card.Revie wed r/b/a of the Myfembree. Irregular periods 306634 07 N92.6 675275 [id number] LUCINDA HINOJOSA MD [facility] [address] [place] [address] 08/22/2024 11:18:17 08/22/2024 12:23:08 Routine gynecologic examination 209041151 Z01.419 92165811 Cancer cer vix screening status 603298156 Z12.4 [id number] Dysmenorrhea 751567787 N 94.6 Endometrio sis of pelvis 89030795 N80.9 [id number] LUCINDA HINOJOSA MD [facility] [address] [place] [address] 09/20/2024 11:07:23 09/20/2024 11:23:27 Endometriosis (clinical) 761444039 N80.9 20007 confirmed with l-scope on 4C ont Myfembree daily, can use for up to 24 months. Take at qhs. Irregular periods 359348 07 N92.6 202049 Health Concerns Section Related Observation LastModified by Organization Detai ls LastModified Time None Recorded Concern Status LastModified by Organization Details LastModified Time None Recorded Advance Directives Directive None Recorded Payers Insurance Date Sequence Insurance Name Policy Number Policy Hawk Covered Member ID Hawk Member ID Guarantor Name 09/25/2024 1 [employer] [facility] ON OR AFTER 02/05/2020 (MEDICAID REPLACEMENT - HMO) Melissa Frazier [id number] Melissa Frazier Notes Date Note Type Note Provider Name and Address Organization Details Recorded Time 5 text/htm l patient has had problems most recently with spotting with exercise.she has history of endometriosis dx by laparoscopy. she has tried Orilissa and most recently OCs.she was given Rx for estradiol for 10 days and her spotting resolved.here today for SIS to evaluate the cavity and r/o structural abnormalities. LUCINDA HINOJOSA MD [address] [place] [address], [phone], [facility] 04/11/2024 21:27:23 5 text/htm l ROS as noted in the HPI Patient comes in today for follow-up visit to follow up on Abnormal Uterine Bleeding. The bleeding has improved, but continues with cramping since last visit. NOTE:would like to continue her OC.going to do them continuously.still having some abdominal cramping and descirbes that she has tenderness over her whole abdomen. LUCINDA HINOJOSA MD [address] [place] [address], [phone], [facility] 04/06/2024 15:47:30 5 text/htm l Abnormal BleedingReported by PatientHPIFor associated symptoms, patient reportsdysmenorrhea,pelvic pain,abdominal pain,dyspareunia,fatigue, anddizzinessbut reportsno anemia,no shortness of breath,no chest pain/palpitations,no bloating,no change in bowel function,no urinary symptoms,no premenstrual syndrome,no vaginal discharge,no vaginal itching/irritation, andno fever. For onset/timing, patient reportspast 3-5 cycles,irregular, andbetween menstrual periods. For duration, patient -63 days/month. For quality, patient reportsmoderate,passing clots, andheavy. For severity, patient reportschanging pad/tampon every 1-2 hours,interferes with daily activities, andbleeding through onto clothes/sheets. For context, patient reportsnegative testandhistory of endometriosis(has hx of pcos). For prior tests/treatments, patient reportsoral contraceptives(sis 03/22/24).TSH was elevated in March(6) and has stayed up at 4. FreT4 was normal. She is now started synthroid 25mcg per her PCP. Subclinical hypothyroidism. She is starting the med to help with energy and brain fog. Started OCPs at age 15 for heavy, irreg cycles.L-scope done in October 2023 and it showed endometriosis and shortly after the procedure her irregular bleeding started. Stopped orilissa in November due to side effects and then did the Piper OCP continuously.Says she has tried over 10 OCPs. STI testing and treated for endometritis in December. OCPs changed in December.SIS in March and it was normal. Nortrel worked for a couple of months and now bleeding for 11 days. Cycles are painful.ROS as noted in the HPI Pt saw Yolande Hinojosa in March for f/u on previous AUB. See office note. CARIDAD BUSH PA-C [address] [place], [address], [place] [facility] 07/18/2024 13:07:08 5 text/htm l Annual GYNReported by PatientHistoryFor history, patient reportsendometriosisbut reportsobstetric history: g0 t__ p__ a__ l__,date of last pap test (1st pap), andthyroid disease (hypothyroidism)(still having abdominal pain before bowel movements - pain scale 8 or 9/10).Genitourinary symptomsFor menstrual cycle, patient reportsirregular cycle intervals. For urinary symptoms, patient reportsno hematuriaandno incontinence. For vulva, patient reportsno genital lesion. For vagina, patient reportsnormal vaginal discharge.Breast symptomsFor breast, patient reportsno breast pain,no breast lump, andno nipple discharge.ContraceptionFor current contraception, patient reportssatisfied with current contraceptionandoral contraceptives.Endocrine symptomsFor sexual complaints, patient reportspain during intercourse (every time)anddecreased libido. 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 ROS as noted in the HPI LUCINDA HINOJOSA MD [address] [place] [address], [phone], [facility] 08/22/2024 12:20:54 5 text/htm l ROS as noted in the HPI Patient presents for an interval office visit to follow-up regarding use of Myfembreefor endometriosis/aub.She has been tolerating the medication well.She has found the medication use helpful.She reports the following side effects:She does wish to continue the current medication.Additional comments: Bleeding and pain has improved. Does feel some of the hormonal side effects, but doesn't mind it with it helping the bleeding and pain. CARIDAD BUSH PA-C [address] [place] [address], [phone], [facility] 09/20/2024 11:23:18 OBGyn Episode No OBEpisode recorded.
--- OUTSIDE RECORDS SUMMARY | 2025-01-01 19:21 | XMS_ITS | Encounter Summary ---
Author Organization [facility] Address [facility] [place] [address] Care Team Providers Care Net Applications Developer Name Role Phone Nasim Gomes MD Primary Care Provider [phone] Eligio Wright MD Unavailable Unavailabl e Uzma Scott GUZZLER BUILDER Unavailable [phone] Reason for Referral * Consultation (Routine) - Authorized Specialty Diagnoses / Procedures Referred By Ct beatty Referred To Contact OBGYN Diagnoses PCOS (polycystic ovarian syndrome) Painful menstrual periods Procedures OFFICE/OUTPATIENT NEW LOW MDM 30-44 MINUTES OFFICE/OUTPT VISIT,NEW,LEVL IV OFFICE/OUTPT VISIT,NEW,LEVL V OFFICE/OUTPT VISIT,EST,LEVL III OFFICE/OUTPT VISIT,EST,LEVL IV OFFICE/OUTPT VISIT,EST,LEVL V Uzma Scott, GUZZLER BUILDER [address] [place] [address] Phone: tel: fax: [facility] [address] [place] [phone] Phone: tel: fax: Referral ID Status Reason Start Date Expiration Date Visits Requested Visits Authorized [id number] Authorized Specialty Services 5 12/28/2025 100 100 * Consultation (Routine) - Authorized Specialty Diagnoses / Procedures Referred By Ct beatty Referred To Contact ENDOCRINOLOGY Diagnoses Hypothyroidism, unspecified type PCOS (polycystic ovarian syndrome) Procedures OFFICE/OUTPATIENT NEW LOW MDM 30-44 MINUTES OFFICE/OUTPT VISIT,NEW,LEVL IV OFFICE/OUTPT VISIT,NEW,LEVL V OFFICE/OUTPT VISIT,EST,LEVL III OFFICE/OUTPT VISIT,EST,LEVL IV OFFICE/OUTPT VISIT,EST,LEVL V Uzma Scott APRN [address] [place] [address] Phone: tel: fax: [facility] [address] [place] [phone] Phone: tel: fax: Referral ID Status Reason Start Date Expiration Date Visits Requested Visits Authorized [id number] Authorized Specialty Services 12/28/2025 100 100 Scheduling Instructions Patient will need to go to a tertiary center that also specializes in reproductive health. Encounter Details Date Type Department Care Team (Late st Contact Info) Description 12/27/2024 Results Follow-Up [facility] Family [facility]-[place] [address] [place] [address] Uzma Scott APRN [address] [place] [address] THYROID STIM HORMONE TSH, FREE T3, THYROXINE, FREE (FT4), Additional followed-up results: 4 Social History Tobacco Use Types Packs/Day Years Used Date Smoking Tobacco: Never Smokeless Tobacco: Never Comments:Patient does not pl an to start Alcohol Use Standard Drinks/Week Comments Never 0 (1 standard drink = 0.6 oz pur e alcohol) AUDIT-C Answer Date Recorded Frequency of Alcohol Consumption Never 10/10/2019 Average Number of Drinks Not on file 020 Frequency of Binge Drinking Not on file 07/2019 PHQ-2 Answer Date Recorded Patient Health Questionnaire-2 Score 0 04/06/2024 Comments No Sex and Gender Information Value Date Recorded Sex Assigned at Female 04/06/2024 9:44 AM HEADING MACHINE OPERATOR Legal Sex Female 9:17 PM HEADING MACHINE OPERATOR Gender Identity Female 04/06/2024 9:44 AM HEADING MACHINE OPERATOR Sexual Orientation Not on file documented as of this encounter Progress Notes * Marleni Smalls RN - 12/28/2024 8:16 AM CDTAddended by: MARLENI SMALLS on: 12/28/2024 08:16 AM Modules accepted: Orders documented in this encounter Plan of Treatment Scheduled Orders Name Type Priority Associated Diagnoses Orde r Schedule THYROID STIM HORMONE TSH Lab Routine Hypothyroidism, unspecified type Expected: 03/29/2025, Expires: 03/29/2026 THYROXINE, FREE (FT4) Lab Routine Hypothyroidism, unspecified type Expected: 03/29/2025, Expires: 03/29/2026 FREE T3 Lab Routine Hypothyroidism, unspecified type Expected: 03/29/2025, Expires: 03/29/2026 Scheduled Referrals Name Type Priority Associated Diagnoses Orde r Schedule Ambulatory referral to Endocrinology (OTHER) Referral Routine Hypothyroidism, unspecified type PCOS (polycystic ovarian syndrome) Ordered: 12/28/2024 Ambulatory referral to Obstetrics/Gynecology (OTHER) Referral Routine PCOS (polycystic ovarian syndrome) Painful menstrual periods Ordered: 12/28/2024 documented as of this encounter Visit Diagnoses Diagnosis Hypothyroidism, unspecified type- Primary PCOS (polycystic ovarian syndrome) Polycystic ovaries Painful menstrual periods Dysmenorrhea documented in this encounter Additional Health Concerns Assessment Noted Time PHQ-9 Depression Total Score: 0 07/23/19 23 10:08 AM CDT documented as of this encounter Care Teams Net Applications Developer Relationship Specialty Start Date End Date Nasim Gomes MD [address] [place] [address] PCP - General FAMILY PRACTICE 12/14/18 Eligio Wright MD [address] [place], [place] [id number] [place] [address] Hand Candle Dipper CARDIOVASCULAR DISEASE 03/24/22 Uzma Scott, GUZZLER BUILDER [address] [place] [address] Nurse Practitioner FAMILY PRACTICE 03/24/22 documented as of this encounter
--- OUTSIDE RECORDS SUMMARY | 2025-01-01 19:21 | XMS_ITS | Encounter Summary ---
Author Organization [facility] Address [facility] [place] [address] Care Team Providers Care Part Time Flexible Clerk Name Role Phone Nasim Gomes MD Primary Care Provider [phone] Eligio Wright MD Unavailable Unavailabl e Uzma Scott MARKETING AUTOMATION MANAGER Unavailable [phone] Encounter Details Date Type Department Care Team (Late st Contact Info) Description 10/11/[address] [facility] [address] [place] [address] Jamila Camara, PA-C [address] [place] [address] Social History Tobacco Use Types Packs/Day Years Used Date Smoking Tobacco: Never Smokeless Tobacco: Never Comments:never Alcohol Use Standard Drinks/Week Comments Never 0 (1 standard drink = 0.6 oz pur e alcohol) AUDIT-C Answer Date Recorded Frequency of Alcohol Consumption Never 10/10/2019 Average Number of Drinks Not on file 020 Frequency of Binge Drinking Not on file 07/2019 PHQ-2 Answer Date Recorded Patient Health Questionnaire-2 Score 0 07/22/2022 Comments No Sex and Gender Information Value Date Recorded Sex Assigned at Female 04/06/2024 9:44 AM TRAFFIC II MANAGER Legal Sex Female 9:17 PM TRAFFIC II MANAGER Gender Identity Female 04/06/2024 9:44 AM TRAFFIC II MANAGER Sexual Orientation Not on file documented as of this encounter Plan of Treatment Not on file documented as of this encounter Visit Diagnoses Not on filedocumented in this encounter Additional Health Concerns Assessment Noted Time PHQ-9 Depression Total Score: 0 07/23/19 10:08 AM CDT documented as of this encounter Care Teams Part Time Flexible Clerk Relationship Specialty Start Date End Date Nasim Gomes MD [address] [place] [address] PCP - General FAMILY PRACTICE 12/14/18 Eligio Wright MD [address] [place], [place] [id number] [place] [address] Bridge/Structure Inspection Team Leader CARDIOVASCULAR DISEASE 03/24/22 Uzma Scott APRN [address] [place] [address] Nurse Practitioner FAMILY PRACTICE 03/24/22 documented as of this encounter
--- OUTSIDE RECORDS SUMMARY | 2025-01-01 19:21 | XMS_ITS | Encounter Summary ---
Author Organization [facility] Address [facility] [place] [address] Care Team Providers Care Fellmongery Worker Name Role Phone Nasim Gomes MD Primary Care Provider [phone] Eligio Wright MD Unavailable Unavailabl e Uzma Scott GRANTS SPECIALIST Unavailable [phone] Encounter Details Date Type Department Care Team (Late st Contact Info) Description 11/30/2024 Taglocity Message Enc [facility] Family Medicine-[place] [address] [place], [place] [id number] [place], [facility] Provider Appointment Needed Social History Tobacco Use Types Packs/Day Years [...] Sex Assigned at Female 04/06/2024 9:44 AM HYDROLOGICAL TECHNICAL OFFICER Legal Sex Female 9:17 PM HYDROLOGICAL TECHNICAL OFFICER Gender Identity Female 04/06/2024 9:44 AM HYDROLOGICAL TECHNICAL OFFICER Sexual Orientation Not on file documented as of this encounter Plan of Treatment Not on file documented as of this encounter Visit Diagnoses Not on filedocumented in this encounter Additional Health Concerns Assessment Noted Time PHQ-9 Depression Total Score: 0 07/23/19 23 10:08 AM CDT documented as of this encounter Care Teams Fellmongery Worker Relationship Specialty Start Date End Date Nasim Gomes MD [address] [place] [address] PCP - General FAMILY PRACTICE 12/14/18 Eligio Wright MD [address] [place], [place] [id number] [place] [address] Latex Dipper CARDIOVASCULAR DISEASE 03/24/22 Uzma Scott APRN [address] [place] [address] Nurse Practitioner FAMILY PRACTICE 03/24/22 documented as of this encounter
--- OUTSIDE RECORDS SUMMARY | 2025-01-01 19:21 | XMS_ITS | Encounter Summary ---
Author Organization [facility] Address [facility] [place] [address] Care Team Providers Care Fitting Room Attendant Name Role Phone Nasim Gomes MD Primary Care Provider [phone] Eligio Wright MD Unavailable Unavailabl e Tyler Uzma Mark HAND WOOD SANDER Unavailable [phone] Encounter Details Date Type Department Care Team (Late st Contact Info) Description 03/20/2022 [facility] [address] [place] [address] [place] [phone] Eligio Wright MD Social History Tobacco Use Types Packs/Day Years Used Date Smoking Tobacco: Never Smokeless Tobacco: Never Tobacco Cessation:Counseling Given: Not Answered Comments:never Alcohol Use Standard Drinks/Week Comments Never 0 (1 standard drink = 0.6 oz pur e alcohol) AUDIT-C Answer Date Recorded Frequency of Alcohol Consumption Never 10/10/2019 Average Number of Drinks Not on file 020 Frequency of Binge Drinking Not on file 07/2019 PHQ-2 Answer Date Recorded PHQ-2 Score - If the patient scores above 3, please move on to questions 3-9 0 10/20/2021 Comments No Sex and Gender Information Value Date Recorded Sex Assigned at Female 04/06/2024 9:44 AM TALENT SOURCER Legal Sex Female 9:17 PM TALENT SOURCER Gender Identity Female 04/06/2024 9:44 AM TALENT SOURCER Sexual Orientation Not on file documented as of this encounter Plan of Treatment Not on file documented as of this encounter Visit Diagnoses Not on filedocumented in this encounter Additional Health Concerns Assessment Noted Time PHQ-9 Depression Total Score: 0 05/15/19 22 11:14 AM TALENT SOURCER documented as of this encounter Care Teams Fitting Room Attendant Relationship Specialty Start Date End Date Nasim Gomes MD [address] [place] [address] PCP - General FAMILY PRACTICE 12/14/18 Eligio Wright MD [address] Catering Sous Chef CARDIOVASCULAR DISEASE 03/24/22 Uzma Scott APRN [address] [place] [address] Nurse Practitioner FAMILY PRACTICE 03/24/22 documented as of this encounter
--- OUTSIDE RECORDS SUMMARY | 2025-01-01 19:21 | XMS_ITS | Clinical Summary ---
Author Organization [facility] Address [address] [place] [address] Care Team Providers Care Cardiology Technologist Name Role Phone Nasim Gomes MD Primary Care Provider [phone] Eligio Wright MD Unavailable Unavailabl e Uzma Roldan ELEPHANT TAMER Unavailable [phone] Allergies Active Allergy Reactions Criticality Noted Date Comments Polyethylene Glycol Swelling 12/27/2024 Pseudoephedrine Chest pressure,Tachycardia,Vomiting Low 10/10/2019 Medications Multiple Vitamins-Iron (MULTIVITAMIN/IRO N OR)Indications:rajput pplement Take 1 tablet by mouth daily. Indications: supplement Active magnesium oxide (MAG-OX) 400 (240 Mg) MG tablet Take 1 tablet (400 mg total) by mouth daily. 90 tablet 3 03/25/19 23 Active metFORMIN ER (GLUCOPHAGE-XR) 500 MG 24 hr tabletIndications :PCOS (polycystic ovarian syndrome) Take 1 tablet (500 mg total) by mouth daily. 30 tablet 05/30/19 24 Active ferrous sulfate CR (SLOW FE) 45 MG tablet Take 1 tablet (140 mg total) by mouth every morning before breakfast. Active ibuprofen (MOTRIN) 600 MG tabletIndications :Encounter for surveillance of contraceptive pills,Painful menstrual periods TAKE ONE TABLET BY MOUTH EVERY 6 HOURS NEEDED FOR PAIN. 30 tablet 2 02/23/20 24 Active triamcinolone (KENALOG) 0.1 % creamIndications: Pityriasis rosea Apply topically 2 (two) times daily. 80 g 04/06/19 25 Active Relugolix-Estradi ol-Norethind (MYFEMBREE) 40-1-0.5 MG Tab Take 1 tablet by mouth daily. 07/19/19 25 Active dicyclomine (BENTYL) 10 MG capsule Take 1 capsule (10 mg total) by mouth 4 (four) times daily before meals and nightly. Active vitamin D3, cholecalciferol, 125 mcg capsule Take 1 capsule (125 mcg total) by mouth daily. Active levothyroxine (SYNTHROID) 50 MCG tabletIndications :Hypothyroidism, unspecified type Take 1 tablet (50 mcg total) by mouth every morning. 30 tablet 2 12/28/19 25 Active NORTREL 1/35, 28, 1-35 MG-MCG tablet Take 1 tablet by mouth daily. 03/23/19 25 025 Discontin ued(Thera py completed ) predniSONE (DELTASONE) 10 mg tabletIndications :Pityriasis rosea Take 3 tablets for 3 days, then take 2 tablets for 3 days, then take 1 tablet for 4 days. 19 tablet 04/06/19 25 025 Discontin ued(Thera py completed ) levothyroxine (SYNTHROID) 25 MCG tabletIndications :Other fatigue TAKE ONE TABLET BY MOUTH EVERY MORNING 30 tablet 12/01/19 25 025 Discontin ued(Dose adjustmen t) Active Problems Problem Noted Date Diagnosed Date Pelvic pain 10/18/2023 Abnormal uterine bleeding 10/18/2023 S/P laparoscopy 10/18/2023 Endometriosis determined by laparoscopy 10/18/19 24 PCOS (polycystic ovarian syndrome) 09/16/2022 Chest pain in adult 03/25/2022 Encounters Date Type Department Care Team Description 12/27/2024 8:37 AM CDT - 12/27/2024 11:59 PM CDT Hospital Encounter [facility] [address] [place] [address] Uzma Roldan, ELEPHANT TAMER Discharge Disposition: Home or Self Care (Routine Discharge) 12/27/2024 8:20 AM CDT [facility] [address] [place] [address] Uzma Roldan, ELEPHANT TAMER Medication Check (Patient is here for a med check.) 12/27/2024 Results Follow-Up [facility] [address] [address] Uzma Roldan, ELEPHANT TAMER THYROID STIM HORMONE TSH, FREE T3, THYROXINE, FREE (FT4), Additional followed-up results: 4 12/27/2024 Travel 11/30/[address] [facility] [address] [place] [address] [facility] Provider Appointment Needed from Last 3 Months Immunizations Immunization Administration Dates Next Due DTaP-IPV (Kinrix) 08/02/2008 Dtap 05/26/2004 H1N1 Intranasal 2009 Influenza 03/21/2009,2008 Hib (Generic) 06/06/2003,04/03/2003,01/30/2003 Influenza (FluMist) 12/21/2011, 1,12/25/2009,12/12/2008,1 Influenza (Generic) 01/11/2007, 6,12/22/2004,03/03/2004,1 03/07/2003 MMR 11/25/2003 Menactra 08/26/2014 Pediarix 06/06/2003,04/03/2003,01/30/2003 Pneumococcal (Prevnar 13) 11/25/2003,06/06/2003, 04/03/2003,01/30/2003 Tdap (Boostrix) 08/26/2014 Varicella Vaccine 05/26/2004 Varicella/MMR (Proquad) 08/02/2008 Family History Medical History Relation Comments No Known Problems Father No Known Problems Mother Cancer Paternal Grandfather COPD Paternal Grandmother Hypertension Paternal Grandmother Relation Status Comments Father Alive Mother Alive Paternal Grandfather Paternal Grandmother Social History Tobacco Use Types Packs/Day Years [...] Sex Assigned at Female 04/06/2024 9:44 AM MANAGER ASSEMBLY Legal Sex Female 9:17 PM MANAGER ASSEMBLY Gender Identity Female 04/06/2024 9:44 AM MANAGER ASSEMBLY Sexual Orientation Not on file Last Filed Vital Signs Vital Sign Reading Time Taken Comments Blood Pressure 110/74 12/27/2024 8:16 AM CDT Pulse 74 12/27/2024 8:16 AM CDT Temperature 36.7 C (98.1 F) 12/27/2024 8:16 AM CDT Respiratory Rate 18 12/27/2024 8:16 AM CDT Oxygen Saturation 98% 12/27/2024 8:16 AM CDT Inhaled Oxygen Concentration - - Weight 75.6 kg (166 lb 9.6 oz) 12/27/2024 8:16 A M CDT Height 154.9 cm (5' 1) 12/27/2024 8:16 AM CDT Body Mass Index 31.48 12/27/2024 8:16 AM CDT Plan of Treatment Health Maintenance Due Date Last Done Comments Meningococcal B Vaccine (1 of 2 - Standard) 2018 Hepatitis C 2020 Annual Physical 07/23/2023 07/22/2022, 10/20/2021 DTaP, Tdap and Td Vaccines (7 - Td or Tdap) 08/26/2024 08/26/2014, 08/02/2008, 05/26/2004, Additional history exists COVID-19 Vaccine ( season) 2024 Influenza Adult (#1) 2024 12/21/2011, 12/18/2010, 12/25/2009, Additional history exists Cervical Cancer Screening Pap Smear (Age 21 to 29) Every 3 Years 07/22/2025 07/22/2022, 07/22/2022 Cervical Cancer Screening 07/22/2025 HPV Vaccines (1 - 3-dose series) 10/08/2039 Postponed from 2017 (Patient/Guardian Refusal) Hepatitis B Vaccines Completed 06/06/2003, 04/03/2003, 01/30/2003 Pneumococcal Vaccine: Pediatrics (0 to 5 Years) and At-Risk Patients (6 to 49 Years) Completed 11/25/2003, 06/06/2003, 04/03/2003, Additional history exists Meningococcal Vaccine Aged Out 08/26/2014 No yolanda steffi eligible based on patient's age to complete this topic PHQ-2 (Physician [place]) Completed 04/06/2024 Hepatitis A Vaccines Aged Out No long er eligible based on patient's age to complete this topic RSV Immunizations Under 20 Months Aged Out No longer eligible based on patient's age to complete this topic Medical Devices Implanted Type Area Mine Car Dispatcher Device Identifier Shelf Expiration Date Model / Serial / Lot Dental Caps/Crowns Procedures Procedure Name Priority Date/Time Associated Diagnosis Comments VITAMIN B-12 Routine 12/27/2024 8:37 AM CDT Hypothyroidism, unspecified type PCOS (polycystic ovarian syndrome) VITAMIN D, 25 OH Routine 12/27/2024 8:37 AM CDT Hypothyroidism, unspecified type PCOS (polycystic ovarian syndrome) FOLIC ACID SERUM Routine 12/27/2024 8:37 AM CDT Hypothyroidism, unspecified type PCOS (polycystic ovarian syndrome) VITAMIN B6 Routine 12/27/2024 8:37 AM CDT Hypothyroidism, unspecified type PCOS (polycystic ovarian syndrome) THYROXINE, FREE (FT4) Routine 12/27/2024 8:37 AM CDT Hypothyroidism, unspecified type FREE T3 Routine 12/27/2024 8:37 AM CDT Hypothyroidism, unspecified type THYROID STIM HORMONE TSH Routine 12/27/2024 8:37 AM CDT Hypothyroidism, unspecified type CYTOPATH CERV/VAG THIN LAYER Routine 07/22/2022 9:54 AM CDT from Last 3 Months or Most Recently Relevant to Health Maintenance Results * VITAMIN B-12 (12/27/2024 8:37 AM CDT) VITAMIN B12 S/P/B 301 193 - 986 PG/ML 12/27/2024 2:54 PM CDT [facility] 12/27/2024 8:37 AM CDT Uzma Roldan ELEPHANT TAMER LABORATORY Final Result [facility] [address] [place] [address], [place] [phone] * FREE T3 (12/27/2024 8:37 AM CDT) FREE T3 3.1 2.2 - 4.0 PG/ML 12/27/2024 2:02 PM CDT [facility] 12/27/2024 8:37 AM CDT Uzma Roldan ELEPHANT TAMER LABORATORY Final Result Performing Organization Address City/[facility]/ZIP Co de Phone Number [facility] [address] [place] [address], [place] [phone] * FOLIC ACID SERUM (12/27/2024 8:37 AM CDT) FOLATE 11.7 3.1 - 17.5 NG/ML 12/28/2024 7:01 AM CDT [facility] 12/27/2024 8:37 AM CDT Uzma Roldan ELEPHANT TAMER LABORATORY Final Result [facility] [address] [place] [address], [place] [phone] * THYROXINE, FREE (FT4) (12/27/2024 8:37 AM CDT) Pathologist [facility] FREE T4 1.15 0.76 - 1.46 NG/DL 12/27/2024 2:02 PM CDT [facility] 12/27/2024 8:37 AM CDT Uzma Roldan ELEPHANT TAMER LABORATORY Final Result [facility] [address] [place] [address], [place] [phone] * VITAMIN B6 (12/27/2024 8:37 AM CDT) [facility] VITAMIN B6 S/P/B 13.6 2.1 - 21.7 ng/mL 01/01/2025 8:51 AM CDT [facility] Comment: Vitamin supplementation within 24 hours prior to blood draw may affect the accuracy of the results. This test was developed and its analytical performance characteristics have been determined by [facility]. It has not been cleared or approved by the U.S. Food and Drug Administration. This assay has been validated pursuant to the CLIA regulations and is used for clinical purposes. Test Performed by [facility], [facility], [address] [place] [address] García Rollins M.D., Ph.D., Director of Laboratories , CLIA [id number] 12/27/2024 8:37 AM CDT Uzma Roldan ELEPHANT TAMER LABORATORY Final Result Performing Organization Address City/[facility]/ZIP Co de Phone Number [facility] , [place] [phone] * (ABNORMAL) THYROID STIM HORMONE TSH (12/27/2024 8:37 AM CDT) Pathologist [facility] TSH 4.780(H) 0.358 - 3.740 uIU/ML 12/27/2024 2:02 PM CDT [facility] Comment: ASSAY PERFORMED BY CHEMILUMINESCENCE METHODOLOGY USING SIEMENS DIM[employer] VISTA REAGENT. PATIENT RESULTS DETERMINED BY ASSAYS USING DIFFERENT MANUFACTURERS FOR METHODS MAY NOT BE COMPARABLE. 12/27/2024 8:37 AM CDT Uzma Roldan APRN LABORATORY Final Result Performing Organization Address [facility]/ZIP Co de Phone Number [facility] [address] [place] [address], * VITAMIN D 25 OH (12/27/2024 8:37 AM CDT) VITAMIN D 25 HYDROXY S/P/B 28.6 20.0 - 50.0 NG/ML 12/28/2024 8:[address] [facility] Comment: <10 ng/mL (Severe deficiency) 10 TO 19 ng/mL (Mild to Moderate deficiency) 20 TO 50 ng/mL (Optimum levels) 51 TO 80 ng/mL (Increased risk of hypercalciuria) >80 ng/mL (Toxicity possible) 12/27/2024 8:37 AM CDT Uzma Roldan APRN LABORATORY Final Result Performing Organization Address City/[facility] Co de Phone Number [facility] [address] [place] [address], [id number] * Cytopath Cerv/Vag Thin Layer (07/22/2022 9:54 AM CDT) THIN PREP PAP [facility] [address] [place] [address] Department of Pathology Pathology Report CERVICAL/VAGINAL PAP SMEAR REPORT Name: DARRYL KAPADIA Age: 9 2000 (Age: 21) Location: [facility] Sex: F Collected Date: 07/22/2022 [facility] #: [id number] Date Received: 07/26/2022 Date Reported: 07/28/2022 Provider: UZMA ROLDAN APRN INTERPRETATION CERVICAL/ENDOCERVI MANUEL: SATISFACTORY FOR EVALUATION. ENDOCERVICAL/TRANS FORMATION ZONE COMPONENT PRESENT. NEGATIVE FOR INTRAEPITHELIAL LESION OR MALIGNANCY. Electronically Signed Out By DEEPIKA Bautista (ASCP) CLINICAL HISTORY Z12.4 SCREENING ThinPrep Pap Test with HR HPV testing in patient > 21 years with ASC-US diagnosis. Date of Last Menstrual Period: 07/22/2022 Menstrual Status: Regular SPECIMEN SUBMITTED CERVICAL/ENDOCERVI MANUEL Specimen Received:1 Thin Prep Vial, Image Assisted Pap (SMD) Please note: The Pap smear is not a diagnostic test. It is a screening test. Negative results on combined screening (Pap test and HPV-DNA) have a high negative predictive value (99.1-100 percent) for cervical cancer. The pap test is not effective in detecting cervical adenocarcinoma. [facility] 07/22/2022 9:54 AM CDT 07/26/2022 9:54 AM CDT Comment:CERVICAL/ENDOCERVICA L Uzma Roldan APRN PATHOLOGY/CYTOLOGY ORDERABLES Final Result [facility] [address] [place] [address], from Last 3 Months or Most Recently Relevant to Health Maintenance Insurance [facility] MEDICA[employer] Advance Directives * Full Code (Latest Code Status on File) Date Activated Date Inactivated Comments 10/18/2023 10:24 AM 10/18/2023 2:03 PM Care Teams Cardiology Technologist Relationship Specialty Start Date End Date Nasim Gomes MD [address] [place] [address] PCP - General FAMILY PRACTICE 12/14/18 Eligio Wright MD [address] Geometry Teacher CARDIOVASCULAR DISEASE 03/24/22 Uzma Roldan, ELEPHANT TAMER [address] [place] [address] Nurse Practitioner FAMILY PRACTICE 03/24/22
== END 2025-01-01 21:08 | disposition home or self-care (01) ==
PROVIDERS: Student in an Organized Health Care Education/Training Program; Emergency Provider Registered Nurse
DX: R41.82 Altered mental status, unspecified (principal); R42 Dizziness and giddiness; Z20.822 Contact with and (suspected) exposure to COVID-19; N80.9 Endometriosis, unspecified; E28.2 Polycystic ovarian syndrome; E03.9 Hypothyroidism, unspecified; Z79.899 Other long term (current) drug therapy
CPT/HCPCS: 36415; 70450; 71275; 74177; 80053; 80143; 80179; 80307; 81003; 81025; 82077; 82948; 84443; 85025; 85610; 85730; 87637; 93005; 96360; 99284; J7030; Q9967